=== PATIENT | female | born 1965 | race Caucasian/White ===

== ENCOUNTER 2022-12-12 05:40 | Day surgery (SDC) | payer BC ==
[2022-12-12 06:24] VITALS: BMI 27.2
[2022-12-12] MEDS ORDERED: ACETAMINOPHEN INJECTION 200 ML IVPB ONE (06:47)
[2022-12-12] MEDS ORDERED: KETAMINE HCL 500 MG/10 ML VIAL ONE (06:48)
[2022-12-12] MEDS ORDERED: PROPOFOL 40 ML ONE (06:49)
[2022-12-12] MEDS ORDERED: MIDAZOLAM HCL 2 MG/2 ML SINGLE DOSE VIAL ONE (06:49)
[2022-12-12] MEDS ORDERED: LIDOCAINE HCL 1%, 10 MG/ML (10ML VIAL) MDV ONE (07:22)
[2022-12-12] MEDS ORDERED: DEXAMETHASONE SOD PHOSPHATE 4 MG/1 ML VIAL ONE (07:22)
[2022-12-12] MEDS ORDERED: BUPIVACAINE HCL/PF 0.5% (5MG/ML) 10 ML VIAL ONE (07:23)
[2022-12-12] MEDS ORDERED: GENTAMICIN SO4 80 MG/2 ML VIAL ONE (07:56)
[2022-12-12] MEDS ORDERED: ceFAZolin SODIUM 1 GM VIAL IVPB ONE (08:45)
[2022-12-12] MEDS ORDERED: BUPIVACAINE HCL/PF 0.5% (5 MG/ML) 30 ML VIAL IJ ONE (08:48)
[2022-12-12] MEDS ORDERED: LIDOCAINE HCL 1%, 10 MG/ML (20ML VIAL) INF ONE ×2 (08:48)
[2022-12-12] MEDS ORDERED: PROPOFOL 20 ML ONE (11:47)
[2022-12-12 14:16] VITALS: RESP 18
[2022-12-12 15:39] VITALS: BP 125/74; PULSE 85; TEMP 98.6
== END 2022-12-12 15:15 | disposition home or self-care (01) ==
LOC: JASU-SURG 05:40
PROVIDERS: ATTEND Podiatrist Foot Surgery
PROC: 0SRQ0JZ Replacement of Left Toe Phalangeal Joint with Synthetic Substitute, Open Approach (ICD-10-PCS; 2022-12-12)
PROC: 0QSP04Z Reposition Left Metatarsal with Internal Fixation Device, Open Approach (ICD-10-PCS; principal; 2022-12-12 07:30)
DX: M20.12 Hallux valgus (acquired), left foot (principal); M20.42 Other hammer toe(s) (acquired), left foot
CPT/HCPCS: 28285; 28297; C1713; 73630-TC-LT; 76000-TC-FY; 88304-TC; 88311-TC; 94760; 97116-GP; C1889